=== PATIENT | female | born 1985 | race Caucasian/White ===

== ENCOUNTER 2022-06-26 08:16 | Emergency (ER) | payer OTHER, SELFPAY ==
[2022-06-26 08:34] VITALS: BP 131/87; PULSE 94; RESP 18; TEMP 36.1; O2SAT 99
--- NOTE | 2022-06-26 08:45 | ED.EAR ---
HPI - Ear Problem General Chief complaint: Ear Stated complaint: ear pain Time Seen by Provider: 06/26/22 08:37 Source: patient Mode of arrival: ambulatory Limitations: no limitations History of Present Illness HPI Narrative: Patient presents today complaining left ear pain since yesterday radiating to her throat. Denies any additional symptoms. She currently rates her pain 03/03 has not tried any [id number] medication for symptoms prior to arrival. Related Data Home Medications Medication Instructions Recorded Confirmed norethindrone acetate 1 mg-ethinyl tablet 06/26/22 estradiol 20 mcg tablet phentermine 37.5 mg tablet mg 06/26/22 sertraline 100 mg tablet mg 06/26/22 Allergies Allergy/AdvReac Type Severity Reaction Status Date / Time colistin Allergy Swelling Verified 06/26/22 08:44 [From Cortisporin-TC] hydrocortisone Allergy Swelling Verified 06/26/22 08:44 [From Cortisporin-TC] neomycin Allergy Swelling Verified 06/26/22 08:44 [From Cortisporin-TC] thonzonium bromide Allergy Swelling Verified 06/26/22 08:44 [From Cortisporin-TC] Review of Systems Review of Systems: CONSTITUTIONAL: Denies body aches, fever, chills, or sweats. EYES: Denies visual changes, redness, or discharge. ENT: Denies rhinorrhea, congestion. + Left ear pain, sore throat CARDIOVASCULAR: Denies chest pain, palpitations, or edema. RESPIRATORY: Denies cough or dyspnea. GASTROINTESTINAL: Denies abdominal pain, nausea, vomiting, or diarrhea. GENITOURINARY: Denies dysuria or hematuria. SKIN: Denies rash, itching, or wounds. MUSCULOSKELETAL: Denies back pain, joint pain, or myalgia. NEUROLOGIC: Denies headache, numbness, tingling, or weakness. PSYCH: Denies depression or anxiety. PMFSH Comments At time of signature, I have reviewed and agree with nursing past medical, surgical, social and family history unless otherwise noted. Please see nursing chart for further information. There is no relevant family history pertinent to the presenting complaint Exam Narrative: GENERAL: Well-appearing, well-nourished, and in no acute distress. HEAD: Normocephalic, atraumatic. EYES: EOMI. No redness or drainage. Conjunctivae normal. ENT: Mucous membranes pink and moist. Nares clear. No rhinorrhea. right TM normal, left ear retracted without evidence of infection. Throat normal With moderate amount of thick postnasal drainage. Uvula midline. NECK: Normal AROM. Supple. No lymphadenopathy. CHEST: No respiratory distress. Clear to auscultation. HEART: Regular rate and rhythm. No murmur appreciated. Normal peripheral pulses. EXTREMITIES: Normal range of motion. No edema. SKIN: Warm, dry, no rash. Capillary refill normal. Normal skin turgor. NEURO: No focal deficits. Alert and oriented x3. Gait steady. PSYCH: Normal affect. No signs of depression or anxiety. Course Course Level of Care: Express Care Visit Vital Signs Vital signs: Vital Signs Temperature 97.0 F L 06/26/22 08:34 Pulse Rate 94 06/26/22 08:34 Respiratory Rate 18 06/26/22 08:34 Blood Pressure 131/87 06/26/22 08:34 Pulse Oximetry 99 06/26/22 08:34 Oxygen Delivery Room Air 06/26/22 08:34 Temperature 97.0 F L 06/26/22 08:34 Pulse Rate 94 06/26/22 08:34 Respiratory Rate 18 06/26/22 08:34 Blood Pressure 131/87 06/26/22 08:34 Pulse Oximetry 99 06/26/22 08:34 Oxygen Delivery Room Air 06/26/22 08:34 Reviewed. Pt has been instructed to follow up with her PCP regarding her elevated blood pressure today. Medical Decision Making Differential Diagnosis Differential Diagnosis: URI, AOM, otitis externa, ruptured TM, serous otitis, eustachian tube dysfunction, pharyngitis, strep throat Vital Signs Vital Signs: Vital Signs Temperature 97.0 F L 06/26/22 08:34 Pulse Rate 94 06/26/22 08:34 Respiratory Rate 18 06/26/22 08:34 Blood Pressure 131/87 06/26/22 08:34 Pulse Oximetry 99 06/26/22 0
== END 2022-06-26 08:50 | disposition home or self-care (01) ==
PROVIDERS: Emergency Provider Nurse Practitioner
DX: R09.82 Postnasal drip (principal); H73.892 Other specified disorders of tympanic membrane, left ear
CPT/HCPCS: 99202; G0463

== ENCOUNTER 2022-07-09 11:04 | Emergency (ER) | payer OTHER, SELFPAY | END 2022-07-09 11:32 | disposition left against medical advice (07) | PROVIDERS: Emergency Provider Internal Medicine Hematology & Oncology | DX: Z53.21 Procedure and treatment not carried out due to patient leaving prior to being seen by health care provider (principal) | CPT/HCPCS: 99199 ==